=== PATIENT | male | born 1995 | race Caucasian/White ===

== ENCOUNTER 2017-02-12 09:46 | Emergency (ER) | payer OTHER ==
[2017-02-12 09:52] VITALS: BP 144/78; PULSE 70; RESP 18; TEMP 97.5; O2SAT 97
--- NOTE | 2017-02-12 11:11 | CPEKG ---
Heart Rate: 56 RR Interval: 1071 P-R Interval: 172 QRSD Interval: 96 QT Interval: 396 QTC Interval: 383 P [place]: 76 QRS [place]: 79 T Wave [place]: 55 EKG Severity - NORMAL ECG - EKG Impression: SINUS RHYTHM EKG Impression: ST ELEV, PROBABLE NORMAL EARLY REPOL PATTERN Electronically Signed By: Jermaine Grullon 15-Feb-2017 06:15:43
--- NOTE | 2017-02-12 13:00 | EDPHY ---
H & P Smoking Status: Never smoked Time Seen by Provider: 02/12/17 12:01 HPI/ROS: CHIEF COMPLAINT: Dizzy, possible medication reaction HISTORY OF PRESENT ILLNESS: 21-year-old male presents to the emergency department by private vehicle feeling very dizzy. He has a history of an autoimmune disease and is followed by a physician at [facility]. His primary care provider explained that he should be taking magnesium and also prescribed prednisone. He has been taking prednisone and has been on this without any problems. He was not sure what type of magnesium to get so he used magnesium citrate. Shortly after taking that medication he felt very dizzy and lightheaded. He went to bed and was feeling better and then when he woke up this morning took the medication again had the same symptoms again. Now that the medication is wearing off he is feeling much better. He has no chest pain or difficulty breathing. No abdominal pain. REVIEW OF SYSTEMS: Constitutional: No fever, no chills. Eyes: No double or blurry vision. ENT: No sore throat. Respiratory: No cough, no shortness of breath. Cardiac: No chest pain. Gastrointestinal: No abdominal pain, vomiting or diarrhea. Genitourinary: No dysuria. Musculoskeletal: No neck or back pain. Skin: No rashes. Neurological: No headache. (Sally Mayo) Past Medical/Surgical History: Autoimmune disease (Sally Mayo) Social History: [employer] student (Sally Mayo) Physical Exam: General Appearance: Alert, no distress. Mentating normally and answering questions appropriately. Eyes: Pupils equal and round. Extraocular motions are all intact. ENT: Mouth: Mucous membranes moist. Respiratory: No wheezing, rhonchi, or rales, lungs are clear to auscultation. Cardiovascular: Regular rate and rhythm. Gastrointestinal: Abdomen is soft and nontender, no masses, no rebound or guarding, bowel sounds normal. Neurological: Alert and oriented x 3, cranial nerves II through XII grossly intact Skin: Warm and dry, no rashes. Musculoskeletal: Nontender to palpate along the cervical, thoracic or lumbar spine. Neck is supple. Extremities: Full range of motion and no peripheral edema. Psychiatric: Patient is oriented X 3, there is no agitation. (Sally Mayo) Constitutional: Initial Vital Signs Temperature (C) 36.4 C 02/12/17 09:50 Heart Rate 70 02/12/17 09:50 Respiratory Rate 18 02/12/17 09:50 Blood Pressure 144/78 H 02/12/17 09:50 O2 Sat (%) 97 02/12/17 09:50 O2 Delivery Mode Room Air Allergies/Adverse Reactions: Sulfa (Sulfonamide Antibiotics) Allergy (Verified 02/12/17 09:49) Home Medications: Medication Instructions Recorded MAGNESIUM 02/12/17 Prednisone 02/12/17 Medical Decision Making ED Course/Re-evaluation: 21-year-old male presents to the emergency department feeling dizzy. He feels that this was likely related to magnesium supplement that he took. The patient does not want any laboratory testing. His symptoms have now resolved. He feels comfortable being discharged home. I encouraged close follow-up with his primary care provider as well as discussion of what type of magnesium he should be taking. His vital signs are stable. He will be discharged. He will return if he has any recurring symptoms or feels worse. (Sally Mayo) Differential Diagnosis: Including but not limited to adverse medication reaction, positional vertigo, electrolyte abnormality (Sally Mayo) Other Provider: The patient was evaluated and managed by the Physician Workforce Services Representative. I discussed the patient's presentation and course with the midlevel provider with them and agree with the evaluation. My co-signature indicates that I have reviewed this chart and I agree with the findings and plan of care as documented. I am the secondary supervising physician. (Jana Toscano) Departure - Departure Disposition: Home, Routine, Self-Care Clinical Impression: Dizzy Condition: Good Instructions: Adverse Drug Reaction (ED), Dizziness (ED) Additional Instructions: Call your primary care provider to discuss the magnesium that they wanted due to take. Return to the emergency department if your symptoms change or worsen. Referrals: [facility] [Other] - As per Instructions
== END 2017-02-12 13:11 | disposition home or self-care (01) ==
DX: R42 Dizziness and giddiness (principal)

== ENCOUNTER 2017-05-21 16:20 | Emergency (ER) | payer OTHER ==
[2017-05-21 16:30] VITALS: RESP 16; TEMP 98.6
[2017-05-21] MEDS ORDERED: IPRATROPIUM/ALBUTEROL 3 ML DEYVIAL IH ONE ×2 (16:33→17:11)
--- NOTE | 2017-05-21 16:38 | EDPHY ---
H & P Time Seen by Provider: 05/21/17 16:26 HPI/ROS: HPI Cough, flu-like symptoms. 22-year-old male by private vehicle. This patient reports that since this morning he has had a deep cough which he says is intermittently productive of a green sputum. He has had some mild wheezing with this cough as well. He describes feeling fatigued and having mild to moderate body aches. Denies subjective fever. No sore throat. Denies ill contacts. History of influenza in December. He has since been vaccinated. He has a history of Yolanda's granulomatosis. He was on extended prednisone but has been off of this medication for about a month now. He is managed at [facility]. He is not on any other immune modulator or other medications currently. ROS: Constitutional: No fever, no chills. As above. Eyes: No discharge. No changes in vision. ENT: No sore throat. No nasal congestion or rhinorrhea. Respiratory: As above. Cardiac: No chest pain, no palpitations. Gastrointestinal: No abdominal pain, no vomiting, no diarrhea. Genitourinary: No hematuria. No dysuria or increased frequency with urination. Musculoskeletal: No back pain. No neck pain. As above. Skin: No rashes. Neurological: No headache. No focal weakness or altered sensation. Past medical history: As above. Social history: Nonsmoker. No alcohol. Student [employer]. Physical Exam: General Appearance: Alert, no distress. This patient is responding to questions appropriately and in full sentences. This patient appears well- hydrated and well-nourished. Eyes: Pupils equal and round no pallor or injection. No lid edema, erythema or injection. ENT, Mouth: Mucous membranes are moist. The pharyngeal tissues are unremarkable. No edema or swelling. No asymmetry suggestive of abscess. No erythema or exudates. Shallow 2 mm oral aphthous ulcer anterior left lower gum line. Respiratory: There are no retractions, diffuse wheezing with scant rhonchi mid and upper lung stafford bilaterally, no tachypnea. Cardiovascular: Regular rate and rhythm. No murmur. Neurological: Motor sensory function is grossly intact. Cranial nerves are normal. Gait is normal. Skin: Warm and dry, no rashes. Musculoskeletal: Neck is supple and nontender. No cervical, submandibular, submental lymphadenopathy. Extremities are symmetrical. All joints range without pain or impingement. Psychiatric: No agitation. No depression. Database: EKG: Imaging: Chest x-ray PA and lateral; the cardiac mediastinal silhouette is unremarkable. No evidence of infiltrate or pneumothorax. Mild bronchitis. 2 nodules, left- sided lateral. No other acute cardiopulmonary disease process noted. Interpreted by me and discussed with staff radiologist Dr. Torrey Carrillo. Procedures: Emergency department course: His vital signs were reviewed and are normal. He will be given an albuterol/ Atrovent nebulizer treatment for his wheezing. This will be repeated as needed. He consents to chest x-ray. He is also requesting that we test him for influenza. 5:00 p.m., patient re-evaluated. He is finished his nebulizer treatment. He feels better after this. Repeat pulmonary exam he still has some faint wheezing but has significantly improved air movement. No tachypnea. I did discussed starting him on steroids again. He definitively does not want to do this. I advised on an additional albuterol/Atrovent nebulizer treatment. He consents to this. 5:30 p.m., patient resting comfortably. No tachypnea. Good air movement in his bilateral lung stafford and repeat pulmonary exam. Scant wheezing present. Results of influenza assay and chest x-ray discussed with patient. Secondary to his history of Yolanda's granulomatosis. He is concerned about the etiology of his bronchitis. He is asking for sputum cultures. I also discussed getting a respiratory pathogen panel. He would like this done as well. Otherwise, his vital signs have remained normal in the emergency department and he does feel comfortable going home at this time. I do not feel he requires antibiotics at this time. He will follow up on the results of his respiratory pathogen panel and sputum culture tomorrow morning. He will have this information forwarded to his primary care physician at [facility]. I explained to him that if I obtained results this evening I would call him at home to discuss. He will follow up with his primary care physician at [facility] tomorrow. Return to emergency department precautions reviewed. All of his questions were answered. He was discharged in good condition. Differential Diagnosis: The differential diagnosis on this patient includes but is not limited to viral bronchitis, influenza, pneumonia, reactive airway disease. This represents a partial list of diagnoses considered. These considerations are based on history , physical exam, past history, reassessment and diagnostic testing. Smoking Status: Never smoked Constitutional: Initial Vital Signs Temperature (C) 37 C 05/21/17 16:24 Heart Rate 71 05/21/17 16:24 Respiratory Rate 16 05/21/17 16:24 Blood Pressure 117/67 05/21/17 16:24 O2 Sat (%) 95 05/21/17 16:24 O2 Delivery Mode Room Air Allergies/Adverse Reactions: No Known Allergies Allergy (Unverified 05/21/17 16:30) Home Medications: Medication Instructions Recorded Glycopyrrolate 05/21/17 Medical Decision Making - Diagnostics Imaging Results: Imaging Impressions Chest X-Ray 05/21/17 16:33 Impression: 1. Mild peribronchial cuffing in the perihilar region bilaterally. Findings are nonspecific but can be seen with bronchitis, viral process, or reactive airways disease. 2. Oval nodules left mid lung laterally along with smaller calcified granulomas bilaterally suspected. Consider follow-up chest x-ray in 6 months to confirm stability. In retrospect, there is a history of Yolanda's granulomatosis. Bilateral pulmonary nodules can be seen with this etiology is well. The patient has comparison chest x-rays performed elsewhere. Findings discussed with Britta Herman MD at 17:21 hour, 05/21/2017. - Data Points Laboratory Results: 05/21/17 16:35 Influenza A,B Rapid NEGATIVE FOR FLU (NEGATIVE) Medications Given: Discontinued Medications Albuterol/Ipratropium (Duoneb) 3 ml IH EDNOW ONE Stop: 05/21/17 16:34 Last Admin: 05/21/17 16:42 Dose: 3 ml Albuterol/Ipratropium (Duoneb) 3 ml IH EDNOW ONE Stop: 05/21/17 17:12 Last Admin: 05/21/17 17:13 Dose: 3 ml Departure - Departure Disposition: Home, Routine, Self-Care Clinical Impression: Bronchitis, Viral syndrome Condition: Good Instructions: Acute Bronchitis (ED) Additional Instructions: Read and follow provided instructions. Follow-up with your primary care physician at [facility] in the next 1-2 days for re-evaluation. Have your physician their compare you're chest x-ray today from previous chest x-rays. Of note are the to left-sided lateral nodules. Take medication as prescribed. Albuterol meter dose inhaler: 1-2 puffs every 2-4 hours as needed for cough, wheezing, shortness of breath. Return to the emergency department for worsening symptoms, worsening cough, high fever, any difficulty breathing or other serious concerns. Preliminary results of your respiratory pathogen panel and sputum testing should be available by tomorrow. Referrals: DR DARLING [Other] - As per Instructions
[2017-05-21] MEDS ORDERED: IPRATROPIUM/ALBUTEROL 3 ML DEYVIAL ONE (17:11)
[2017-05-21] MEDS ORDERED: ALBUTEROL INH PREPACK MDI TAKEHOME ONE (17:13)
[2017-05-21 17:57] VITALS: BP 134/77; PULSE 85; O2SAT 96
== END 2017-05-21 17:51 | disposition home or self-care (01) ==
LOC: CED 16:20
DX: J40 Bronchitis, not specified as acute or chronic (principal); B34.9 Viral infection, unspecified
CPT/HCPCS: 71046-PO; 87400-PO

== ENCOUNTER 2017-07-16 02:03 | Emergency (ER) | payer OTHER ==
[2017-07-16] MEDS ORDERED: SILVER NITRATE APPLICATOR 1 APPL TP ONE (02:08)
[2017-07-16] MEDS ORDERED: PHENYLEPHRINE 0.25% NASAL 15 ML SPRAY ONE (02:09)
--- NOTE | 2017-07-16 02:17 | EDPHY ---
H & P Stated Complaint: nose bleed x1 hour Time Seen by Provider: 07/16/17 02:14 HPI/ROS: HPI CHIEF COMPLAINT: Epistaxis x1 hour. HISTORY OF PRESENT ILLNESS: Patient very pleasant 22-year-old male, presents emergency room with epistaxis times 1 hr. He is unable to get this to stop at home so decided come to the emergency room. He believes that it started of the left nare. 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 He denies any trauma to his face. He denies being on blood thinners. 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 However no longer on any blood thinners. Does not take aspirin. 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 Past Surgical History: No recent surgical history Social History: Denies daily use drugs alcohol tobacco. Family History: Noncontributory ROS REVIEW OF SYSTEMS: A comprehensive 10 point review of systems is otherwise negative aside from elements mentioned in the history of present illness. Exam Constitutional triage nursing summary reviewed, vital signs reviewed, awake/ alert. Eyes normal conjunctivae and sclera, EOMI, PERRLA. HENT Nose: Anterior nose bleed present. No pulsatile artery, fresh blood in both anterior aspects of both nares. Posterior pharynx shows no blood. normal inspection, atraumatic, moist mucus membranes, no epistaxis, neck supple/ no meningismus, no raccoon eyes. Respiratory clear to auscultation bilaterally, normal breath sounds, no respiratory distress, no wheezing. Cardiovascular rate normal, regular rhythm, no murmur, no edema, distal pulses normal. Gastrointestinal soft, non-tender, no rebound, no guarding, normal bowel sounds, no distension, no pulsatile mass. Genitourinary no CVA tenderness. Musculoskeletal no midline vertebral tenderness, full range of motion, no calf swelling, no tenderness of extremities, no meningismus, good pulses, neurovascularly intact. Skin pink, warm, & dry, no rash, skin atraumatic. Neurologic awake, alert and oriented x 3, AAOx3, moves all 4 extremities equally, motor intact, sensory intact, CN II-XII intact, normal cerebellar, normal vision, normal speech. Psychiatric normal mood/affect. Heme/Lymph/Immune no lymphadenopathy. Differential Diagnosis: Includes but is not limited to in a particular order anterior nose bleed, low platelets, thrombocytopenia, posterior nosebleed. Arterial injury. Medical Decision Making: Plan for this patient check CBC with platelet count, given this appears to be knee anterior nose bleed will apply Afrin nasal clamp for 30 min and re-evaluate. Re-evaluation: 0318AM: Patient re-evaluated he received Afrin in both nares. Nasal clamp was applied for 30 min. He now has good hemostasis. The nasal clamp is been removed and will monitor to make sure does not have any recurrent nosebleed. 0401: No recurrence of bleed. Patient remains hemodynamically stable with no ongoing epistaxis. He is eager to be discharged. Return precautions discussed with him. 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 surg - Social History Smoking Status: Never smoked Constitutional: Initial Vital Signs Temperature (C) 36.3 C 07/16/17 02:04 Heart Rate 71 07/16/17 02:04 Respiratory Rate 16 07/16/17 02:04 Blood Pressure 138/66 H 07/16/17 02:04 O2 Sat (%) 97 07/16/17 02:04 O2 Delivery Mode Room Air Allergies/Adverse Reactions: No Known Allergies Allergy (Unverified 05/21/17 16:30) Home Medications: Medication Instructions Recorded Glycopyrrolate 05/21/17 Medical Decision Making - Data Points Laboratory Results: Laboratory Results 07/16/17 02:20 07/16/17 02:20 WBC 6.90 10^3/uL 10^3/uL (3.80-9.50) RBC 5.05 10^6/uL 10^6/uL (4.40-6.38) Hgb 16.7 g/dL g/dL (13.7-17.5) Hct 45.8 % % (40.0-51.0) MCV 90.7 fL fL (81.5-99.8) MCH 33.1 pg pg (27.9-34.1) MCHC 36.5 g/dL g/dL (32.4-36.7) RDW 11.5 % % (11.5-15.2) Plt Count 212 10^3/uL 10^3/uL (150-400) MPV 8.6 fL L fL (8.7-11.7) Neut % (Auto) 63.7 % % (39.3-74.2) Lymph % (Auto) 18.7 % % (15.0-45.0) [place] % (Auto) 13.5 % H % (4.5-13.0) Eos % (Auto) 3.2 % % (0.6-7.6) Baso % (Auto) 0.6 % % (0.3-1.7) Nucleat RBC Rel Count 0.0 % % (0.0-0.2) Absolute Neuts (auto) 4.40 10^3/uL 10^3/uL (1.70-6.50) Absolute Lymphs (auto) 1.29 10^3/uL 10^3/uL (1.00-3.00) Absolute Monos (auto) 0.93 10^3/uL H 10^3/uL (0.30-0.80) Absolute Eos (auto) 0.22 10^3/uL 10^3/uL (0.03-0.40) Absolute Basos (auto) 0.04 10^3/uL 10^3/uL (0.02-0.10) Absolute Nucleated RBC 0.00 10^3/uL 10^3/uL (0-0.01) Immature Gran % 0.3 % % (0.0-1.1) Immature Gran # 0.02 10^3/uL 10^3/uL (0.00-0.10) Departure - Departure Disposition: Home, Routine, Self-Care Clinical Impression: Epistaxis Condition: Good Instructions: Nosebleed (ED) Additional Instructions: 1. Return to the emergency room if you have further epistaxis. 2. If you know starts to rebleed apply direct pressure with plan for 30 min tilt her head forward Referrals: NONE *PRIMARY CARE P,. [Primary Care Provider] - As per Instructions
[2017-07-16 02:30] LABS: PLATELET COUNT 212 10^3/uL (150-400)
[2017-07-16 04:08] VITALS: BP 132/76
== END 2017-07-16 04:08 | disposition home or self-care (01) ==
DX: R04.0 Epistaxis (principal)